=== PATIENT | female | born 1960 | race African-American/Black ===

== ENCOUNTER 2017-05-13 12:20 | Inpatient (IN) ==
[2017-05-13] MEDS ORDERED: BENTYL IM ONE (14:19)
[2017-05-13] MEDS ORDERED: NS 1,000 ML IV ONE ×2 (14:19→17:32)
[2017-05-13] MEDS ORDERED: ZOFRAN IV ONE ×2 (14:19→18:10)
[2017-05-13 15:24] LABS: BASO% 0.1 % (0.0-0.8); EOS# 0.01 X1000 (0.0-0.7); EOS% 0.1 % (0.0-10.0); HEMATOCRIT 49.1 % (37.0-47.0); HEMOGLOBIN 16.1 g/dL (12.0-16.0); IMM GRAN# 0.03 X1000 (0.0-0.04); IMM GRAN% 0.2 % (0.0-0.5); LYMPH# 1.11 X1000 (1.2-3.4); LYMPH% 7.6 % (20.5-51.1); MANUAL DIFF NEEDED? NO; MCH 29.8 PG (27-31); MCHC 32.8 g/dL (33-37); MCV 90.8 FL (81-99); MONO# 0.63 X1000 (0.11-0.59); MONO% 4.3 % (1.7-9.3); MPV 11.2 FL (7.4-10.4); NEUT% 87.7 % (42.2-75.2); PLT 223 X1000 (130-400); RBC 5.41 XMIL (4.2-5.4)
[2017-05-13 15:49] LABS: AGAP 12; ALBUMIN 4.5 g/dL (3.5-5.0); ALKALINE PHOSPHATASE 69 U/L (32-104); AMYLASE 64 U/L (20-200); BUN 14 mg/dL (8-22); CALCIUM 9.7 mg/dL (8.8-10.2); CHLORIDE 104 mmol/L (98-107); COSMO 281; GOT 12 U/L (10-30); GPT 6 U/L (10-36); LIPASE 28 U/L (13-60); POTASSIUM 3.9 mmol/L (3.5-5.1); SODIUM 139 mmol/L (136-145); TCO2 23 mmol/L (25-35); TOTAL PROTEIN 8.6 g/dL (6.3-8.3)
--- NOTE | 2017-05-13 16:37 | Diag Imaging Result Doc PS360 ---
EXAM: ABDOMEN/PELVIS W/O CONTRAST HISTORY: ABD PAIN/VOMITING TECHNIQUE: CT urogram without contrast COMMENT: There is interstitial fibrosis versus edema present in the lung bases. There is free fluid in the subphrenic spaces. There is also some free fluid in the pelvis. The urinary bladder is unremarkable. There is fluid throughout much of the small bowel. No evidence of hydronephrosis or nephrolithiasis is present. There are no definite gallstones. The distal ileum is decompressed. There is some equalization of contents in the distal jejunum or proximal ileum. Some remaining gas and stool is present in the ascending colon. There is solid stool in the transverse colon. There is also some residual fecal debris in the rectosigmoid. No free air is present. There is no evidence of appendicitis. There are no acute bony abnormalities. IMPRESSION: Partial small bowel obstruction with ascites. The possibility of an internal hernia cannot be excluded. Electronically signed by Tomás Zhao 05/13/2017 4:34 PM
[2017-05-13] MEDS ORDERED: ZOSYN 4.5 GM/NS 4.5 GM/100 ML IVPB IV ONE (17:31)
[2017-05-13] MEDS ORDERED: DILAUDID IV ONE (17:34)
[2017-05-13 17:41] LABS: URINE CULTURE NEEDED? NO; URINE MICRO REVIEW NEEDED? NO; URINE SOURCE CLEAN CATCH
--- NOTE | 2017-05-13 17:46 | PROVIDER DOCUMENTATION ---
This chart was entered by Shar Portillo Scribe, acting as scribe for Valery Uribe MD. HPI-General Adult - General Chief Complaint: Nausea/Vomiting Stated Complaint: N/V Time Seen by Provider: 05/13/17 14:13 Source: patient Allergies/Adverse Reactions: Patient Allergies Allergy/AdvReac Type Severity Reaction Status Date / Time Iodinated Contrast Media - Allergy ANAPHYLAXIS Verified 06/05/16 17:45 Oral and Home Medications: Home Medication List Medication Instructions Recorded Confirmed Last Taken Type Acetaminophen with Codeine 1 each PO Q4H PRN PRN #7 tablet 06/05/16 Unknown Rx [Tylenol with Codeine #3] Cyclobenzaprine [Flexeril] 10 mg PO TID #20 tablet 06/05/16 Unknown Rx - History of Present Illness -Gen Adult Nature of Presenting Problems: 57 yo F presents to the ER with complaint of abdominal pain, nausea, and vomiting x 1 day. PT denies diarrhea and all other symptoms. Location of Pain/Injury: reports: abdomen Pain Radiation: reports: no radiation Quality of Pain: reports: aching Severity: reports: mild Onset/Duration: reports: 24 hours ago Timing: reports: still present Associated Symptoms: reports: nausea, vomiting Review of Systems - Adult - REVIEW OF SYSTEMS - ADULT Constitutional: denies: chills, fever Cardiovascular: denies: chest pain, palpitations Respiratory: denies: cough, shortness of breath Gastrointestinal: reports: abdominal pain, nausea, vomiting. denies: diarrhea Musculoskeletal: denies: back pain, neck pain All Other Systems: Reviewed and Negative Past History - Adult - PAST MEDICAL HISTORY-ADULT Review of Records: reports: Old Records Reviewed, Nursing Assessment Review, Medications Reviewed, Social history reviewed & non-contributory. - PRIOR SURGERIES/PROCEDURES Surgical/Procedure History: reports: reviewed, not pertinent - IMMUNIZATION STATUS Childhood Immunizations: See Nurse Assessment Flu Vaccine: See Nurse Assessment Physical Exam-General - PHYSICAL EXAM-ADULT Initial Vital Signs Reviewed: Yes - CONSTITUTIONAL General Appearance: appears well, alert, no apparent distress - RESPIRATORY Respiratory: chest non-tender, lungs clear, normal breath sounds - CARDIOVASCULAR Cardiovascular: normal peripheral pulses, regular rate, rhythm - GASTROINTESTINAL (ABDOMEN) Abdominal Exam: normal bowel sounds, soft, tenderness (suprapubic and left quadrant) - MUSCULOSKELETAL Extremity: normal range of motion, non-tender, normal gait Progress - PLAN OF CARE/RESULTS Progress/Plan/Lab Results: Vital Signs - 8 hr 05/13/17 12:22 Temperature 98.3 F Pulse Rate 69 Respiratory Rate 18 Blood Pressure 159/92 O2 Sat by Pulse Oximetry 100 Orders Category Date Time Status NPO Diet 05/13/17 12:39 Active AMYLASE [CHEM] Stat Lab 05/13/17 12:39 Uncollected CBC WITH ELECTRONIC DIFF [HEME] Stat Lab 05/13/17 12:39 Uncollected COMPREHENSIVE METABOLIC PANEL [CHEM] Stat Lab 05/13/17 12:39 Uncollected LIPASE [CHEM] Stat Lab 05/13/17 12:39 Uncollected URINALYSIS W/POSS RFLX CULT-1 [URINALYSIS] Stat Lab 05/13/17 12:39 Uncollected 0.9% Sodium Chloride Inj [Ns] 1,000 ml Med 05/13/17 14:19 Active IV 999 mls/hr Dicyclomine [Bentyl] Med 05/13/17 14:19 Discontinued 20 mg IM NOW ONE Ondansetron [Zofran] Med 05/13/17 14:19 Discontinued 4 mg IV NOW ONE Result Diagrams: 05/13/17 14:55 05/13/17 14:55 - CT/MRI 1 CT Study: Abdomen Impression: See EMR Report (partial SBO with ascitis) - CONSULTS/PCP/HOSPITALIST Notification #1 *Consult/PCP/Hospitalist*: DR Moreno Time Discussed: 17:43 Consult Disposition: Admit #2 Consult: Dr Elliott(surgery) Time Discussed: 17:44 Consult Disposition: other (will see inpt) Departure - Departure Date of Disposition Decision: 05/13/17 Time of Disposition Decision: 17:44 DIAGNOSIS: SBO (small bowel obstruction) Ascites Qualifiers: Ascites type: other type Qualified Code(s): R18.8 - Other ascites Disposition: ADMITTED INPATIENT 09 Certified Medical Emergency: Emergent Condition: Fair Referrals and Follow-Ups: None,PCP [Primary Care Provider] - - Critical Care Note This patient required my direct & personal management of CC.: No Comments: pt on evalaution found to have partial SBO with ascitis no free air noted, given pain medicaitons along with IV fluids, discussed with surgery Dr Elliott and admit to hospitalist This chart was documented by the indicated scribe, (Shar Portillo Scribe) and accurately reflects the services I performed and decisions made by me, Valery Uribe MD, as attested by the provider's signature.
[2017-05-13 17:49] LABS: BILIRUBIN URINE NEGATIVE (NEGATIVE); BLOOD URINE SMALL (NEGATIVE); COLOR YELLOW; GLUCOSE URINE NEGATIVE (NEGATIVE); LEUKOCYTES URINE NEGATIVE (NEGATIVE); NITRITE URINE NEGATIVE (NEGATIVE); PH URINE 5.5; PROTEIN URINE 50 mg/dL (NEGATIVE); TURBIDITY URINE CLEAR (CLEAR); UR EPITHELIAL CELLS <10 /HPF (<10); URINE BACTERIA NEGATIVE /HPF; URINE RBC <10 /HPF (<10); URINE WBC <10 /HPF (<10); UROBILINOGEN URINE NORMAL (NORMAL)
[2017-05-13] MEDS ORDERED: SODIUM CHLORIDE 0.9% INJ PRN (19:00)
[2017-05-13] MEDS ORDERED: PHENERGAN IV PRN (19:00)
[2017-05-13] MEDS ORDERED: TYLENOL PR PRN (19:08)
[2017-05-13] MEDS ORDERED: SODIUM CHLORIDE 0.9% 10 ML ONE (20:04)
--- NOTE | 2017-05-13 20:38 | HISTORY AND PHYSICAL ---
PRIMARY CARE PHYSICIAN: The patient does not have a primary care physician. CHIEF COMPLAINT: Nausea, vomiting and abdominal pain since last night around 8:30 p.m. HISTORY OF PRESENT ILLNESS: Ms. Rees is a 57-year-old female with a history of a cerebral aneurysm status post clipping who presented to the ER today with a chief complaint of abdominal cramping as well as nausea and vomiting that started around 8:30 p.m. last night at work. The patient states that she was at work when all of a sudden after she ate her meal, she started experiencing severe lower abdominal cramping. The patient states that she continued to work. However when she got home she hurt all night and was unable to sleep. The abdominal pain was then followed by nausea with vomiting. The patient again started having the same symptoms again today and decided to come to the ER. The patient states that she has not been having any diarrhea and her last bowel movement was day before yesterday. The patient states that this has never happened to her before. She denies having any fever, chills or recent sick contacts. The patient states that she did not eat anything usual over the last several days. In the ER, a CT of the abdomen and pelvis was done that revealed a partial small bowel obstruction. PAST MEDICAL HISTORY: Cerebral aneurysm. PAST SURGICAL HISTORY: 1. Hysterectomy. 2. Clipping of a cerebral aneurysm. FAMILY HISTORY: Noncontributory due to age. SOCIAL HISTORY: The patient denies any tobacco, alcohol or illicit drug use. The patient states that she lives at home with family. ALLERGIES: Iodinated contrast media. Oral and IV. HOME MEDICATIONS: None. REVIEW OF SYSTEMS: All other review of systems are negative. Please refer to the history of present illness for pertinent positives and negatives. PHYSICAL EXAMINATION: VITAL SIGNS: Temperature 98.3 degrees, blood pressure 159/92, heart rate 69, respirations 18, O2 saturations 100% on room air. GENERAL: This is an elderly female, lying in bed, in no acute distress. HEAD: Normocephalic, atraumatic. SKIN: No rashes. No lesions. Normal capillary refill. EYES: Conjunctivae clear, EOMI, PERRLA. NECK: Supple no JVD. No lymphadenopathy. No carotid bruits. LUNGS: Clear to auscultation bilaterally. No wheezes, no rales. No rhonchi. ABDOMEN: Hypoactive bowel sounds. Soft. Diffuse tenderness. No rebound. EXTREMITIES: No edema. No cyanosis. No calf tenderness. NEUROLOGIC: The patient is alert and oriented x3. No focal neurologic deficits noted. LABORATORY: White blood cell count 14, hemoglobin 16, hematocrit 49, platelets 223,000. Sodium 139, potassium 3.9, chloride 104. CO2 23, BUN 14, creatinine 0.6, glucose 144, calcium 9.7, AST 12, ALT 6, alkaline phosphatase 69, albumin 4.5. UA: Small blood and trace protein. IMAGING: CT of the abdomen and pelvis reveals a partial small bowel obstruction with ascites. Possible internal hernia. ASSESSMENT AND PLAN: 1. Partial small bowel obstruction. The patient will be made nothing per oral. We will place an nasogastric tube to low intermittent suction and repeat abdominal x-ray tomorrow. We will also consult General Surgery for further recommendations. The patient will be started on IV fluids, p.r.n. antiemetics and IV pain medication. 2. Leukocytosis. The patient's urinalysis is unremarkable. We will check a chest x-ray to rule out the possibility of pneumonia. For now we will hold off on antibiotic therapy. The patient is afebrile. 3. Gastrointestinal prophylaxis. We will start the patient on IV Protonix. 4. Deep vein thrombosis prophylaxis. We will start the patient on Lovenox. The plan of care was discussed with the patient and her family members at the bedside. cc: Henny Moreno MD
--- NOTE | 2017-05-13 20:47 | Diag Imaging Result Doc PS360 ---
EXAM: CHEST/ABD TUBE PLACEMENT HISTORY: REPOSITION NG TUBE TECHNIQUE: AP upright portable chest at 2034 COMMENT: There is an NG tube with its tip in the fundus of the stomach. There is minimal basilar atelectasis bilaterally. There are no previous studies. IMPRESSION: NG tube in the stomach. Electronically signed by Tomás Zhao 05/13/2017 8:44 PM
[2017-05-13] MEDS: PROTONIX IV SCH (21:30)
[2017-05-13] MEDS ORDERED: NS 1,000 ML ONE (22:42)
[2017-05-13] MEDS: NS 1,000 ML IV SCH (22:49)
[2017-05-14 06:01] LABS: HEMATOCRIT 50.3 % (37.0-47.0); HEMOGLOBIN 16.4 g/dL (12.0-16.0); MCHC 32.6 g/dL (33-37); MCV 92.1 FL (81-99); MPV 10.8 FL (7.4-10.4); RBC 5.46 XMIL (4.2-5.4)
[2017-05-14 06:20] LABS: HEMOGLOBIN A1C 5.5 % (4.8-6.0)
[2017-05-14 06:59] LABS: AGAP 15; ALBUMIN 3.8 g/dL (3.5-5.0); BUN 15 mg/dL (8-22); CALCIUM 8.9 mg/dL (8.8-10.2); CHLORIDE 106 mmol/L (98-107); COSMO 287; POTASSIUM 4.3 mmol/L (3.5-5.1); SODIUM 143 mmol/L (136-145); TCO2 22 mmol/L (25-35)
[2017-05-14 07:13] LABS: VITAMIN D 25 HYDROXY 6.1 NG/DL
[2017-05-14] MEDS: PROTONIX IV SCH ×2 (07:40→18:40)
--- NOTE | 2017-05-14 08:17 | CONSULTATION ---
DATE OF CONSULTATION: 05/14/2017 Ms. Zoila Rees is a 57-year-old black female, who presented to our emergency department with a 12-24 hour history of crampy abdominal pain, which was intermittent but severe involving mostly her lower abdomen. As part of her evaluation, she underwent a CT scan of her abdomen and pelvis which suggested a partial small-bowel obstruction. She has had previous abdominal surgery through a lower transverse incision and it was a hysterectomy; otherwise, she has had no abdominal surgery. She has not had symptoms like this before. Her last bowel movement was approximately 2 days ago. PAST MEDICAL HISTORY: Hysterectomy. MEDICATIONS: None. ALLERGIES: Iodine dye. SOCIAL HISTORY: She works in [employer]. REVIEW OF SYSTEMS: A 14-point review of systems was performed and was essentially negative, except for the history of present illness. FAMILY HISTORY: Noncontributory. PHYSICAL EXAMINATION: General: Ms. Rees remains in our emergency department. She has an NG tube in place. The output of this NG tube has been minimal. She states that she feels better than her presentation last night in her abdomen. She is only slightly tender. She is awake, cooperative. She has no jaundice. No oral lesions. No cervical or supraclavicular lymphadenopathy. Heart: Regular rate. Lungs: Clear to auscultation and percussion bilaterally. Abdomen: Mostly soft. It is mildly tender in the lower abdomen. There is no palpable mass. She has a well-healed transverse scar in the lower abdomen without evidence of hernia. She had no costovertebral tenderness. Rectal/Vaginal Examinations: Not performed. She does have palpable peripheral pulses. No peripheral edema. Neurological: She is alert and oriented x3 and appropriate. She has had a CT scan of her abdomen and pelvis which suggested a possible partial small bowel obstruction. Could not rule out internal hernia, but she did have some stool in her colon with some gas in the ascending colon. She has had a flat plate of her abdomen after placement of an NG tube. She has also had a chest x-ray. There was no evidence of free air. Her lungs were mostly clear. Her white blood cell count was 14. It has increased to 17 this morning. Her electrolytes are all within normal limits, as is her liver function tests. PLAN: She needs repeat flat and upright abdominal films this morning. I feel we need to continue NG tube suction for now and IV fluids. She does not feel that she has had any flatus and not had a bowel movement since her admission. We need to keep her active. cc: Gayla Elliott MD
--- NOTE | 2017-05-14 08:27 | Diag Imaging Result Doc PS360 ---
EXAM: FLAT/UPRIGHT ABD/1 VIEW CHEST HISTORY: obstruction TECHNIQUE: Portable upright COMPARISON: 05/13/2017 FINDINGS: A nasogastric tube overlies the esophagus and stomach. Heart is not enlarged. The vessels are not distended. Mild increased interstitial markings in the right base may simply be atelectasis or fibrosis. No consolidation. IMPRESSION: No significant interval change. Electronically signed by Rene Masters 05/14/2017 8:25 AM
[2017-05-14] MEDS: NS 1,000 ML IV SCH ×3 (09:15→18:37)
[2017-05-14] MEDS: LOVENOX SUBQ SCH (09:15)
[2017-05-14] MEDS: ROCEPHIN 1 GM/NS 1 GM/50 ML IVPB IV SCH (09:30)
[2017-05-14] MEDS: DILAUDID IV PRN ×3 (15:27→18:49)
--- NOTE | 2017-05-14 16:20 | PROGRESS NOTE ---
DATE: 05/14/2017 SUBJECTIVE: The patient states that she is not nauseous and not having abdominal pain at this time. She currently has NG tube in place to low intermittent suction. OBJECTIVE: Vital Signs: Temperature 98 degrees, blood pressure 138/75, heart rate 73, respirations 16, O2 saturations 99% on room air. General: This is an elderly female, lying in bed, in no acute distress. Head: Normocephalic, atraumatic. Heart: S1, S2. Normal. Regular rate and rhythm. Lungs: Clear to auscultation bilaterally. Abdomen: Positive bowel sounds. Soft, nontender, nondistended. Extremities: No edema. No cyanosis. No calf tenderness. Neurologic: The patient is alert and oriented x3. LABS: White blood cell count 17, hemoglobin 16, hematocrit 50, platelets 203,000. Sodium 143, potassium 4.3, chloride 106, CO2 22, BUN 15, creatinine 0.8, glucose 120. Vitamin D 6.1. ASSESSMENT AND PLAN: 1. Partial small bowel obstruction. Continue with NG tube decompression. The patient will remain NPO. Continue IV fluid hydration. 2. Leukocytosis. The patient does not have any obvious source of infection. We will continue to monitor this closely. The patient is currently on Rocephin. 3. Deep vein thrombosis prophylaxis. Continue on Lovenox. 4. Gastrointestinal prophylaxis. Continue on IV Protonix. cc: Henny Moreno MD
[2017-05-14] MEDS: SODIUM CHLORIDE 0.9% INJ SCH (18:40)
[2017-05-15] MEDS: NS 1,000 ML IV SCH ×2 (05:14)
[2017-05-15] MEDS: PROTONIX IV SCH ×3 (05:14→20:42)
[2017-05-15] MEDS: SODIUM CHLORIDE 0.9% INJ SCH ×2 (05:14→20:42)
[2017-05-15 06:20] LABS: HEMATOCRIT 42.4 % (37.0-47.0); HEMOGLOBIN 13.5 g/dL (12.0-16.0); MCH 30.8 PG (27-31); MCHC 31.8 g/dL (33-37); MCV 96.8 FL (81-99); MPV 11.3 FL (7.4-10.4); RBC 4.38 XMIL (4.2-5.4)
[2017-05-15 06:32] LABS: AGAP 13; ALBUMIN 3.2 g/dL (3.5-5.0); BUN 20 mg/dL (8-22); CALCIUM 8.5 mg/dL (8.8-10.2); CHLORIDE 110 mmol/L (98-107); COSMO 294; MAGNESIUM 2.1 mg/dL (1.5-2.7); POTASSIUM 3.7 mmol/L (3.5-5.1); SODIUM 147 mmol/L (136-145); TCO2 24 mmol/L (25-35)
--- NOTE | 2017-05-15 07:53 | Diag Imaging Result Doc PS360 ---
EXAM: ABDOMEN FLAT/UPRIGHT HISTORY: obstruction TECHNIQUE: AP upright chest and abdomen at 0550 portable COMMENT: There is an NG tube coiled in the fundus of the stomach. There is some small bowel and colonic gas with stool throughout the left colon. There is apparent atelectasis in the basilar portion of the left lower lobe. This is worse than on 05/14/2017. IMPRESSION: Constipation. Left lower lobe atelectasis. Otherwise nonspecific abdomen. Electronically signed by Tomás Zhao 05/15/2017 7:51 AM
[2017-05-15] MEDS: LOVENOX SUBQ SCH (08:16)
[2017-05-15] MEDS: ROCEPHIN 1 GM/NS 1 GM/50 ML IVPB IV SCH (08:16)
[2017-05-15] MEDS ORDERED: D5 1/2 NS + KCL 20 MEQ 1,000 ML IV SCH (08:40)
--- NOTE | 2017-05-15 09:34 | PROGRESS NOTE ---
DATE: 05/15/2017 SUBJECTIVE: This is hospital day 3 for Ms. Rees, who is a 57-year-old black female who was admitted through our emergency department with a diagnosis of partial small bowel obstruction. An NG tube was placed in the emergency department and she has not had much volume out of the NG tube. Today she is on the floor and her abdomen is mostly soft. Mildly tender to palpation diffusely. She is she has an NG tube in place. She states that she has had flatus. Her heart rate is 74, blood pressure 139/79. Her hematocrit is 42%. She does not have a Cornejo catheter tube in place. Her urine output is adequate. Her BUN and creatinine are 20 and 0.8. She has telemetry in place. She is independent and is able to move around her room. She is on IV antibiotics because of an elevated white blood cell count and abdominal pain, but I am unsure of where her infection is. Her white blood cell count is now normal and she is afebrile. She is on IV Rocephin and Zosyn. PLAN: We will remove her NG tube. We will keep her NPO except for ice chips now to make sure she tolerates her NG tube being out. We then will advance her diet. IV antibiotics continue. We will try to limit her pain medicine and increase her activity. cc: Gayla Elliott MD
[2017-05-15] MEDS ORDERED: POTASSIUM PHOSPHATE 20 MMOL in NS 250 ML IV ONE (12:30)
--- NOTE | 2017-05-15 12:31 | Diag Imaging Result Doc PS360 ---
EXAM: CT THORAX W/O CONTRAST - 05/15/2017 HISTORY: pneumonia TECHNIQUE: Without contrast per request the referring provider. Dose reduction protocol. COMPARISON: None. FINDINGS: There is some emphysematous changes and scarring which are most prominent at the anterior medial upper lobes, particularly on the left. There are infiltrates, possibly with some atelectasis, at the bilateral inferior lower lobes, is prominent on the left. These are suspicious for pneumonia. The remainder lungs appear grossly clear of acute changes. There are tiny bilateral pleural effusions. There is no pneumothorax seen. There are nonspecific small mediastinal lymph nodes. There is a small amount of perihepatic ascites noted on included sections of the upper abdomen. IMPRESSION: Emphysematous changes and scarring, most prominent at the anterior medial upper lobes, particularly on the left. Infiltrates at bilateral inferior lower lobes, is prominent on the left. These are suspicious for pneumonia. Small amount of perihepatic ascites. Electronically signed by Jesús Alvarez 05/15/2017 12:29 PM
--- NOTE | 2017-05-15 16:20 | PROGRESS NOTE ---
DATE: 05/15/2017 SUBJECTIVE: The patient had her NG tube removed today. Her x-ray is improved. OBJECTIVE: Vital Signs: Temperature 97.6, blood pressure 126/60, heart rate 65, respirations 20, O2 saturations 98% on room air. General: This is an elderly female, sitting in a chair in no acute distress. Head: Normocephalic, atraumatic. Heart: S1, S2. Normal. Regular rate and rhythm. Lungs: Equal air entry bilaterally. Crackles at the bases. Abdomen: Positive bowel sounds. Soft, nontender, nondistended. Extremities: No edema. No cyanosis. No calf tenderness. Neurologic: The patient is alert and oriented x3. LABS: White blood cell count is 6.5, hemoglobin 13, hematocrit 42, platelets 164. Sodium 147, potassium 3.7, chloride 110, CO2 of 24, BUN 20, creatinine 0.8, glucose 80, phosphorus 2.5, albumin 3.2. CT of the chest reveals bilateral basilar infiltrates consistent with pneumonia. ASSESSMENT AND PLAN: 1. Bilateral lobe pneumonia. The patient is currently on Rocephin. Will continue this. Will also check a sputum, Gram stain and culture. Will order incentive spirometry. Will also order bronchodilator therapy. 2. Partial small bowel obstruction. Improved. General surgery is following. 3. Hypernatremia. The patient's IV fluid has been changed to D5 half-normal saline. Will monitor this closely. 4. Deep vein thrombosis prophylaxis. Continue on Lovenox. 5. Consult physical therapy. cc: Henny Moreno MD
[2017-05-15] MEDS: DUONEB (A & A) INH SCH ×2 (16:40→22:23)
[2017-05-15] MEDS: D5 1/2 NS 1,000 ML IV SCH ×2 (17:14→18:29)
[2017-05-15] MEDS: MERREM 500 MG in NS 50 ML IV SCH (18:14)
[2017-05-16] MEDS: MERREM 500 MG in NS 50 ML IV SCH ×3 (01:41→18:03)
[2017-05-16] MEDS: DUONEB (A & A) INH SCH ×2 (03:30→11:21)
[2017-05-16] MEDS: D5 1/2 NS 1,000 ML IV SCH ×2 (05:03→18:03)
[2017-05-16 06:00] LABS: MANUAL DIFF NEEDED? NO
[2017-05-16] MEDS: SODIUM CHLORIDE 0.9% INJ SCH ×2 (06:05→18:03)
[2017-05-16] MEDS: PROTONIX IV SCH ×2 (06:05→18:03)
[2017-05-16 06:26] LABS: AGAP 12; ALBUMIN 3.1 g/dL (3.5-5.0); BUN 15 mg/dL (8-22); CALCIUM 8.3 mg/dL (8.8-10.2); CHLORIDE 108 mmol/L (98-107); COSMO 286; POTASSIUM 3.3 mmol/L (3.5-5.1); SODIUM 143 mmol/L (136-145); TCO2 23 mmol/L (25-35)
[2017-05-16 06:36] LABS: BASO% 0.2 % (0.0-0.8); EOS# 0.12 X1000 (0.0-0.7); EOS% 1.8 % (0.0-10.0); HEMATOCRIT 40.6 % (37.0-47.0); HEMOGLOBIN 12.9 g/dL (12.0-16.0); LYMPH# 2.13 X1000 (1.2-3.4); LYMPH% 32.4 % (20.5-51.1); MCH 29.7 PG (27-31); MCHC 31.8 g/dL (33-37); MCV 93.3 FL (81-99); MONO% 12.2 % (1.7-9.3); MPV 11.6 FL (7.4-10.4); NEUT% 53.4 % (42.2-75.2); PLT 159 X1000 (130-400); RBC 4.35 XMIL (4.2-5.4)
--- NOTE | 2017-05-16 07:27 | Diag Imaging Result Doc PS360 ---
EXAM: ABDOMEN FLAT/UPRIGHT HISTORY: obstruction TECHNIQUE: Portable flat and upright abdomen two views COMMENT: There is atelectasis or pneumonia in the left lower lobe. There are no distended gas-filled small bowel loops in the midabdomen. Some gas is present in the colon including the rectum. Compared to 05/15/2017 there is less colonic gas and less small bowel fluid apparently. IMPRESSION: Partial small bowel obstruction. Electronically signed by Tomás Zhao 05/16/2017 7:24 AM
[2017-05-16] MEDS: LOVENOX SUBQ SCH (08:04)
[2017-05-16] MEDS: ROCEPHIN 1 GM/NS 1 GM/50 ML IVPB IV SCH (08:04)
[2017-05-16] MEDS ORDERED: POTASSIUM CHLORIDE 60 MEQ in NS 500 ML IV ONE (09:00)
[2017-05-16] MEDS ORDERED: BLISTEX MEDICATED BERRY LIP BALM TOP PRN (11:04)
--- NOTE | 2017-05-16 11:51 | Diag Imaging Result Doc PS360 ---
EXAM: ABDOMEN FLAT/UPRIGHT HISTORY: obstruction TECHNIQUE: AP portable chest and abdomen two views COMMENT: There is gas in the colon including the rectum. There is distention of the small bowel throughout the midabdomen. This was also the case on the previous study of this date at 0530. There is atelectasis versus pneumonia in the left lower lobe with some increase in the platelike atelectasis over the right base. IMPRESSION: Partial small bowel obstruction. Bibasilar atelectasis with possible pneumonia on the left. Electronically signed by Tomás Zhao 05/16/2017 11:49 AM
--- NOTE | 2017-05-16 13:24 | PROGRESS NOTE ---
DATE: 05/16/2017 SUBJECTIVE: Zoila Rees is a 57-year-old black female who has presented with abdominal pain. We have removed her NG tube and she has had no nausea or vomiting. She is tolerating liquids. She has had flatus, but no bowel movement. Her only previous abdominal surgery has been sections. OBJECTIVE: Vital Signs: She is afebrile. Lungs: She has no work of breathing. Abdomen: Her abdomen is slightly distended, but not tightly. There does not appear to be significant tenderness on palpation. ASSESSMENT: She is on IV antibiotics. We are not sure what infection we are treating. LABORATORY AND IMAGING: Her white blood cell count has remained normal at 6.57. Her hematocrit is 40%. Her BUN and creatinine are 15 and 0.7. By chest x-ray, there is some atelectasis versus pneumonia, left lower lobe. She still has some dilated loops of small bowel. PLAN: Will advance her diet as tolerated. She is walking the halls. cc: Gayla Elliott MD
--- NOTE | 2017-05-16 15:36 | PROGRESS NOTE ---
DATE: 05/16/2017 SUBJECTIVE: The patient is up walking in the hallway. She states that she feels a lot better. She is not coughing up greenish colored sputum anymore. She did tolerate a clear liquid breakfast. OBJECTIVE: Vital Signs: Temp 98.6 degrees, blood pressure 154/83, heart rate 72, respirations 18, O2 saturations 98% on room air. General: This is an elderly female, lying in bed, in no acute distress. Head: Normocephalic atraumatic. Heart: S1, S2. Normal. Regular rate and rhythm. Lungs: Clear to auscultation bilaterally. No crackles. No rales. Abdomen: Positive bowel sounds. Soft, nontender, nondistended. Extremities: No edema. No cyanosis. No calf tenderness. Neurological: Patient is alert and oriented x3. LABS: White blood cell count 6.5, hemoglobin 12, hematocrit 40, platelets 159, 000. Sodium 143, potassium 3.3, chloride 108, CO2 23, BUN 15, creatinine 0.7, glucose 96. Albumin 3.1. ASSESSMENT AND PLAN: 1. Partial small bowel obstruction. Improved. The patient appears to be tolerating a clear liquid diet at this time. Further management as per the general surgeon. 2. Pneumonia. The patient's white count has normalized. Will continue on the current antibiotic therapy plus bronchodilator therapy. Once the patient is ready for discharge we will transition to oral antibiotic therapy. 3. Hypertension. Will start the patient on Norvasc. We will also monitor the patient closely for peripheral edema. 4. Hypokalemia. Will replace the patient's potassium. 5. Gastrointestinal prophylaxis. Continue on IV Protonix. 6. Deep vein thrombosis prophylaxis. Continue on Lovenox. The patient is also ambulatory. cc: Henny Moreno MD MTDD
[2017-05-16] MEDS: DUONEB (A & A) INH PRN ×2 (15:58→21:00)
[2017-05-16] MEDS: NORVASC PO SCH (20:24)
[2017-05-17] MEDS: MERREM 500 MG in NS 50 ML IV SCH ×3 (01:22→18:13)
[2017-05-17] MEDS: NORCO-7.5 PO PRN ×2 (01:26→19:41)
[2017-05-17] MEDS: DUONEB (A & A) INH PRN ×4 (03:05→19:10)
[2017-05-17] MEDS: SODIUM CHLORIDE 0.9% INJ SCH (06:08)
[2017-05-17] MEDS: PROTONIX IV SCH (06:08)
[2017-05-17] MEDS: D5 1/2 NS 1,000 ML IV SCH ×2 (06:09→09:55)
[2017-05-17 06:33] LABS: MANUAL DIFF NEEDED? NO
[2017-05-17 06:37] LABS: BASO% 0.1 % (0.0-0.8); EOS% 1.3 % (0.0-10.0); HEMATOCRIT 37.4 % (37.0-47.0); HEMOGLOBIN 12.3 g/dL (12.0-16.0); LYMPH# 2.11 X1000 (1.2-3.4); LYMPH% 28.4 % (20.5-51.1); MCHC 32.9 g/dL (33-37); MCV 91.2 FL (81-99); MONO# 0.64 X1000 (0.11-0.59); MONO% 8.6 % (1.7-9.3); MPV 11.5 FL (7.4-10.4); NEUT% 61.6 % (42.2-75.2); PLT 147 X1000 (130-400)
[2017-05-17 07:12] LABS: AGAP 9; ALBUMIN 3.2 g/dL (3.5-5.0); ALKALINE PHOSPHATASE 44 U/L (32-104); BUN 5 mg/dL (8-22); CALCIUM 8.7 mg/dL (8.8-10.2); CHLORIDE 104 mmol/L (98-107); COSMO 275; GOT 11 U/L (10-30); GPT 5 U/L (10-36); MAGNESIUM 1.8 mg/dL (1.5-2.7); POTASSIUM 3.8 mmol/L (3.5-5.1); SODIUM 139 mmol/L (136-145); TCO2 26 mmol/L (25-35); TOTAL BILIRUBIN 0.33 mg/dL (0.20-1.00); TOTAL PROTEIN 6.1 g/dL (6.3-8.3)
--- NOTE | 2017-05-17 08:28 | PROGRESS NOTE ---
DATE: 05/17/2017 SUBJECTIVE: Ms. Zoila Rees is a 57-year-old black female who has been hospitalized with a partial small-bowel obstruction. This seems to be resolving with conservative treatment. Her white blood cell count was elevated on admission, but now it is normal with IV antibiotics. OBJECTIVE: Her heart rate is 66, blood pressure 150/76, O2 saturation 100%. She has no work of breathing. She is voiding without difficulty. She is passing flatus, but has had no bowel movement. Her white blood cell count is 7.44. She is on IV Rocephin and Merrem for possible pneumonia. Her electrolytes are within the normal limits. Her BUN and creatinine are 5 and 0.5. Liver function tests are within normal limits. A flat and upright abdominal film yesterday still showed some abnormal small bowel gas, but there was also gas in the colon. Clinically, she has states that she feels better and she would like your diet advanced. Her abdomen remains slightly distended, but is softer than yesterday. It does not seem to be tender. She is afebrile. PLAN: We will continue to try to increase her activity and advance her diet. cc: Gayla Elliott MD
[2017-05-17] MEDS: NORVASC PO SCH ×3 (09:52→22:40)
[2017-05-17] MEDS: LOVENOX SUBQ SCH (09:52)
--- NOTE | 2017-05-17 15:52 | PROGRESS NOTE ---
DATE: 05/17/2017 SUBJECTIVE: The patient is resting comfortably in bed. She has no complaints at this time. She says she feels a lot better. She had a solid meal for breakfast. OBJECTIVE: Vital Signs: Temperature 98 degrees, blood pressure 130/56, heart rate 83, respirations 26, O2 saturation 96% on room air. General: This is an elderly female, lying in bed, in no acute distress. Head: Normocephalic, atraumatic. Heart: S1, S2. Normal. Regular rate and rhythm. Lungs: Clear to auscultation bilaterally. No wheezes, no rales. No rhonchi. Abdomen: Positive bowel sounds. Soft, nontender, nondistended. Extremities: No edema. No cyanosis. No calf tenderness. Neurologic: The patient is alert and oriented x3. LABS: Reviewed. ASSESSMENT AND PLAN: 1. Partial small bowel obstruction. Improved. The patient is now on solid diet. We will now monitor the patient closely for bowel movements. General Surgery is following. 2. Pneumonia. Improved. Continue on the current antibiotic regimen. 3. Hypertension. Continue on Norvasc. 4. Deep vein thrombosis prophylaxis. Continue on Lovenox. cc: Henny Moreno MD
[2017-05-17] MEDS: COLACE PO SCH ×2 (19:39→22:40)
[2017-05-17] MEDS: MIRALAX PO SCH ×2 (19:39→22:41)
[2017-05-18] MEDS: MERREM 500 MG in NS 50 ML IV SCH ×3 (01:24→17:27)
[2017-05-18] MEDS: D5 1/2 NS 1,000 ML IV SCH ×2 (01:25→22:13)
[2017-05-18] MEDS: PROTONIX PO SCH (06:02)
[2017-05-18] MEDS: NORCO-7.5 PO PRN (06:02)
[2017-05-18 06:10] LABS: MANUAL DIFF NEEDED? NO
[2017-05-18 06:27] LABS: BASO% 0.2 % (0.0-0.8); EOS# 0.12 X1000 (0.0-0.7); EOS% 2.2 % (0.0-10.0); HEMATOCRIT 38.2 % (37.0-47.0); HEMOGLOBIN 12.7 g/dL (12.0-16.0); LYMPH# 1.91 X1000 (1.2-3.4); LYMPH% 34.5 % (20.5-51.1); MCH 30.2 PG (27-31); MCHC 33.2 g/dL (33-37); MCV 90.7 FL (81-99); MONO# 0.62 X1000 (0.11-0.59); MONO% 11.2 % (1.7-9.3); MPV 11.5 FL (7.4-10.4); NEUT% 51.9 % (42.2-75.2); PLT 160 X1000 (130-400); RBC 4.21 XMIL (4.2-5.4)
[2017-05-18 07:11] LABS: AGAP 10; BUN 5 mg/dL (8-22); CALCIUM 8.9 mg/dL (8.8-10.2); CHLORIDE 103 mmol/L (98-107); COSMO 276; POTASSIUM 3.7 mmol/L (3.5-5.1); SODIUM 140 mmol/L (136-145); TCO2 27 mmol/L (25-35)
[2017-05-18] MEDS: DUONEB (A & A) INH PRN (09:21)
--- NOTE | 2017-05-18 10:34 | PROGRESS NOTE ---
DATE: 05/18/2017 DATE: 05/18/2017. SUBJECTIVE: Ms. Estrada is now hospital day 6, admitted with the diagnosis of a partial small bowel obstruction. She was initially treated with an NG tube and n.p.o. Her NG tube has been removed several days. She has not had any vomiting, but her flat and upright abdominal film continued to show an abnormal amount of gas. She does have gas in her colon. She is eating. Her abdomen remains slightly distended. It is not tightly distended. Her heart rate is 57 blood pressure 141/76 O2 saturation 99%. She is on antibiotics. Her white blood cell count is normal. She is afebrile. She is voiding without a [place]. She is eating about 50% of her meals. Her BUN and creatinine are 5 and 0.6. Hematocrit is 38%. PLAN: She is being pretty active in the room. We are feeding Her. Clinically, she seems to be improving. cc: Gayla Elliott MD
[2017-05-18] MEDS: LOVENOX SUBQ SCH (10:54)
[2017-05-18] MEDS: COLACE PO SCH ×2 (10:54→21:37)
[2017-05-18] MEDS: MIRALAX PO SCH ×2 (10:54→21:37)
[2017-05-18] MEDS: NORVASC PO SCH ×2 (10:54→21:37)
[2017-05-18] MEDS ORDERED: DULCOLAX PR ONE (11:33)
--- NOTE | 2017-05-18 12:41 | Diag Imaging Result Doc PS360 ---
EXAM: FLAT/UPRIGHT ABD/1 VIEW CHEST INDICATION: obstruction TECHNIQUE: 3 views COMPARISON: 05/16/2017 FINDINGS: There is persistent gaseous distention of small bowel that is essentially stable as compared to the previous study. There is no evidence of large volume free abdominal gas. Patchy colonic gas is also stable. There is suggestion of bibasilar atelectasis and/or infiltrate. This is similar to the previous study. No new consolidations are appreciated. Cardiac silhouette is stable. IMPRESSION: Essentially stable chest and abdominal radiograph. Electronically signed by Ar Estevez 05/18/2017 12:39 PM
--- NOTE | 2017-05-18 17:02 | PROGRESS NOTE ---
DATE: 05/18/2017 SUBJECTIVE: The patient is resting comfortably in bed. She states that she has not had a bowel movement yet but she is eating. She had some mild nausea this morning after eating but it subsided. OBJECTIVE: Vital Signs: Temperature 97 degrees, blood pressure 118/58, heart rate 61, respirations 16, O2 saturation is 98% on room air. General: This is an elderly female, lying in bed, in no acute distress. Head: Normocephalic, atraumatic. Heart: S1, S2. Normal. Regular rate and rhythm. Lungs: Clear to auscultation bilaterally. No wheezes. No rales. No rhonchi. Abdomen: Positive bowel sounds. Soft, nontender, nondistended. Extremities: No edema. No cyanosis. Neurologic: The patient is alert and oriented x3. LABS: Sodium 140, potassium 3.7, chloride 103, BUN 5, creatinine 0.6. White blood cell count 5.5, hemoglobin 12, hematocrit 38, platelets 160,000. ASSESSMENT AND PLAN: 1. Partial small bowel obstruction. Improved. The patient appears to be tolerating her diet. Continue with laxatives therapy to aid with bowel movements. 2. Pneumonia. Improved. Continue on the current antibiotic regimen. This is day 5 of 7 days of therapy. 3. Deep vein thrombosis prophylaxis. Continue on Lovenox. 4. Continue with physical therapy. cc: Henny Moreno MD
[2017-05-19] MEDS: MERREM 500 MG in NS 50 ML IV SCH ×3 (01:31→18:06)
[2017-05-19] MEDS: D5 1/2 NS 1,000 ML IV SCH ×3 (01:32→21:24)
[2017-05-19] MEDS: PROTONIX PO SCH (06:12)
[2017-05-19 08:45] LABS: HEMATOCRIT 38.8 % (37.0-47.0); HEMOGLOBIN 12.9 g/dL (12.0-16.0); MCH 30.1 PG (27-31); MCHC 33.2 g/dL (33-37); MCV 90.7 FL (81-99); MPV 12.2 FL (7.4-10.4); RBC 4.28 XMIL (4.2-5.4)
[2017-05-19 08:54] LABS: AGAP 12; BUN 6 mg/dL (8-22); CALCIUM 9.1 mg/dL (8.8-10.2); CHLORIDE 102 mmol/L (98-107); COSMO 272; POTASSIUM 3.9 mmol/L (3.5-5.1); SODIUM 138 mmol/L (136-145); TCO2 24 mmol/L (25-35)
--- NOTE | 2017-05-19 10:27 | PROGRESS NOTE ---
DATE: 05/19/2017 Ms. Rees has had a bowel movement in the last 24 hours. She states that she is passing flatus. She is eating a regular diet. She is walking the halls. Her abdomen is softer, it is nontender to palpation this morning. Her heart rate is 65, blood pressure 135/68, O2 saturation 98%. She has no work of breathing. She is voiding without difficulty. Her white blood cell counts normal. Hematocrit is 39%. Electrolytes are within normal limits. She has had flat and upright abdominal films which showed some abnormal distention of her small bowel, but clinically, she states that she feels better daily. If she continues to improve, will work to get her home this week. cc: Gayla Elliott MD
[2017-05-19] MEDS: NORVASC PO SCH ×2 (10:29→21:25)
[2017-05-19] MEDS: DULCOLAX PO SCH (10:29)
[2017-05-19] MEDS: MIRALAX PO SCH ×2 (10:29→21:25)
[2017-05-19] MEDS: LOVENOX SUBQ SCH (10:30)
[2017-05-19] MEDS: COLACE PO SCH ×2 (10:30→21:25)
--- NOTE | 2017-05-19 13:00 | PROGRESS NOTE ---
DATE: 05/19/2017 SUBJECTIVE: The patient states that she feels good. She did have a bowel movement yesterday. She is eating well and able to tolerate her diet. She is also ambulating in the hallway. OBJECTIVE: Vital Signs: Temperature 98 degrees, blood pressure 135/68, heart rate 65, respirations 16, O2 saturations 98% on room air. General: This is a elderly female, lying in bed in no acute distress. HEENT: Head normocephalic, atraumatic. Heart: S1, S2. Normal. Regular rate and rhythm. Lungs: Clear to auscultation bilaterally. Abdomen: Positive bowel sounds. Soft, nontender, nondistended. Extremities: No edema. No cyanosis. No calf tenderness. Neurologic: The patient is alert and oriented x3. LABS: Reviewed. ASSESSMENT AND PLAN: 1. Partial small bowel obstruction. Improved. General surgery is following. The patient is tolerating a regular diet and she had a bowel movement yesterday. 2. Pneumonia. Improved. Continue on antibiotic therapy. This is day 6 of 7 days of therapy. 3. Hypertension. Controlled. 4. Deep vein thrombosis prophylaxis. Continue on Lovenox. 5. Disposition. The patient will be discharged home once cleared by the general surgeon. cc: Henny Moreno MD
[2017-05-19] MEDS: DUONEB (A & A) INH PRN (20:15)
[2017-05-20] MEDS: MERREM 500 MG in NS 50 ML IV SCH ×3 (02:00→17:30)
[2017-05-20] MEDS: PROTONIX PO SCH ×2 (05:38→06:06)
[2017-05-20 07:06] LABS: HEMATOCRIT 40.4 % (37.0-47.0); HEMOGLOBIN 13.5 g/dL (12.0-16.0); MCHC 33.4 g/dL (33-37); MCV 92.7 FL (81-99); MPV 12.5 FL (7.4-10.4); RBC 4.36 XMIL (4.2-5.4)
[2017-05-20 07:23] LABS: AGAP 10; BUN 8 mg/dL (8-22); CALCIUM 8.8 mg/dL (8.8-10.2); CHLORIDE 102 mmol/L (98-107); COSMO 273; SODIUM 138 mmol/L (136-145); TCO2 26 mmol/L (25-35)
--- NOTE | 2017-05-20 09:06 | PROGRESS NOTE ---
DATE: 05/20/2017 Ms. Rees is sleeping comfortably this morning and I did not wake her. Her heart rate is 56, blood pressure 127/61, O2 saturation 98%. She is consuming about 50-75% of her meals. Her abdomen seems to be soft. Her white blood cell count is normal. Hematocrit is 40%. She has not had a bowel movement marked over the last 24 hours. She continues to be on IV antibiotics, Merrem, and IV fluids at 50 mL an hour. We have placed her on a regular diet. cc: Gayla Elliott MD
--- NOTE | 2017-05-20 09:43 | Diag Imaging Result Doc PS360 ---
EXAM: FLAT/UPRIGHT ABD/1 VIEW CHEST INDICATION: obstruction TECHNIQUE: 3 views COMPARISON: 05/18/2017 FINDINGS: There are several gas-distended loops of small bowel that persist. However, the distention appears to have improved. There is no evidence of large volume free abdominal gas. The abdomen is essentially stable, otherwise. Bibasilar atelectasis and/or infiltrate is stable. There are probably bilateral small effusions, stable. There is no new consolidation identified. Cardiac silhouette is stable. IMPRESSION: Modest improvement of gaseous distention of small bowel. Electronically signed by Ar Estevez 05/20/2017 9:40 AM
[2017-05-20] MEDS: NORVASC PO SCH ×2 (09:45→21:56)
[2017-05-20] MEDS: LOVENOX SUBQ SCH (09:45)
[2017-05-20] MEDS: MIRALAX PO SCH ×2 (09:45→21:56)
[2017-05-20] MEDS: DULCOLAX PO SCH (09:45)
[2017-05-20] MEDS: COLACE PO SCH ×2 (09:45→21:56)
[2017-05-20] MEDS: D5 1/2 NS 1,000 ML IV SCH (17:29)
--- NOTE | 2017-05-20 19:02 | PROGRESS NOTE ---
DATE: 05/20/2017 SUBJECTIVE: This patient states that she is feeling good. She had a bowel movement yesterday and apparently today, she had a couple bowel movements. As per the patient, she is tolerating p.o. and she has been passing gas. We had an abdominal x-ray that showed some improvement of the gaseous distention of the small bowel. Surgery department is following this patient. We will follow their recommendations. OBJECTIVE: Vital Signs: Temperature 98.4, pulse 58, respiratory rate 18, blood pressure 126/64, oxygen saturation 100% on room air. HEENT: Head normocephalic. No trauma. PERRLA. Neck: Supple. No JVD. No masses. Central trachea. Chest: Clear to auscultation. No wheezing. No rales. Abdomen: Soft, mild tenderness to palpation at the level of the periumbilical area. Nondistended. Positive bowel sounds. Extremities: No edema. No clubbing. No cyanosis. Neurological: The patient is alert and oriented x3. No focal deficits. LABORATORY: WBC 5.9, hemoglobin 13.5, hematocrit 40.4, platelets 177. Sodium 138, potassium 4, chloride 102, bicarbonate 26, BUN 8, creatinine 0.5. Glucose 83, calcium 8.8. ASSESSMENT AND PLAN: 1. Partial small bowel obstruction. This looks much better. General surgery is following. The patient is tolerating diet and also she is having bowel movements and passing gas. We will follow the recommendation of surgery department. 2. Pneumonia improved. Continue with antibiotics. 3. Hypertension controlled. 4. Deep vein thrombosis prophylaxis with Lovenox. DISPOSITION: This patient will be discharged home once cleared by General Surgery. cc: Frederick Sales MD
[2017-05-20] MEDS: DUONEB (A & A) INH PRN (21:00)
[2017-05-21] MEDS: MERREM 500 MG in NS 50 ML IV SCH ×3 (01:12→18:10)
[2017-05-21] MEDS: PROTONIX PO SCH (06:01)
[2017-05-21] MEDS: DULCOLAX PO SCH (09:30)
[2017-05-21] MEDS: LOVENOX SUBQ SCH (09:30)
[2017-05-21] MEDS: COLACE PO SCH (09:30)
[2017-05-21] MEDS: MIRALAX PO SCH (09:30)
[2017-05-21] MEDS: NORVASC PO SCH (09:30)
[2017-05-21] MEDS: D5 1/2 NS 1,000 ML IV SCH (14:30)
[2017-05-21 15:24] VITALS: BP 106/57
[2017-05-21] MEDS ORDERED: PNEUMOVAX 23 IM ONE ×2 (18:20→18:30)
--- NOTE | 2017-05-22 10:20 | DISCHARGE SUMMARY ---
ADMISSION DATE: 05/13/2017 DISCHARGE DATE: 05/21/2017 DISCHARGE DIAGNOSES: 1. Partial small bowel obstruction/resolved. 2. Pneumonia, resolved. 3. Hypertension, controlled. HOSPITAL COURSE: A 57-year-old female with a past medical history of cerebral aneurysm status post clipping who presented to the ER on 05/13/2017 with a chief complaint of abdominal cramping as well as nausea and vomiting that started around 8:30 p.m. the day before admission. Apparently, everything started suddenly after she ate her meal. She started having lower abdominal cramping. She states that she was not able to sleep during the night, and the abdominal pain was followed by nausea and vomiting. This is why she decided to go to the emergency department. On the morning of admission, she denied any fever, chills, or recent sick contacts. CT of the abdomen in the emergency department showed partial small bowel obstruction. She was admitted to the medical floor and Surgery Department was consulted. An NG tube with continuous suction was placed, and this patient also was placed on IV fluids. Then, the NG tube was removed, and we started advancing her diet. On 05/20/2017, she started having a bowel movement and also passing more gas. She was not complaining of abdominal pain, nausea, or vomiting. Today, also, she had more bowel movements, and she was tolerating completely her diet. Surgery evaluated this patient and they decided to send this patient home. I agree with this decision. At the moment of discharge, this patient was in a stable medical condition, tolerating p.o., ambulating, completely alert and oriented x3. DISCHARGE PHYSICAL EXAMINATION: Vital Signs: Temperature 97.6 degrees, pulse 61, respiratory rate 14, blood pressure 106/57, oxygen saturation 100% on room air. HEENT: Head normocephalic. No trauma. PERRLA. Neck supple. No JVD. No masses. Central trachea. Chest: Clear to auscultation. No wheezing. No rales. Abdomen is soft, nontender, nondistended. No hepatosplenomegaly. Extremities: No edema. No clubbing. No cyanosis. Neurologic: The patient was alert and oriented x3. No focal deficits. LABORATORY: WBC 5.9, hemoglobin 13.5, hematocrit 40.4, platelet 177,000. Sodium 138, potassium 4, chloride 102, bicarbonate 26. BUN 8, creatinine 0.5, glucose 83. Calcium 8.8. FOLLOWUP: Follow up with her primary care doctor in 1 week. DISCHARGE MEDICATIONS: 1. Amlodipine 5 mg p.o. b.i.d. 2. Dulcolax 10 mg p.o. daily. 3. Docusate 100 mg p.o. b.i.d. Time discharging this patient: 40 minutes. cc: Frederick Sales MD
== END 2017-05-21 18:42 | disposition home or self-care (01) ==
LOC: SUPCPDRO → ED 12:20 → SUATTDRO 20:02 → EDIPHOLD 20:02 → 4N 05-14 11:49
PROVIDERS: ATTEND Internal Medicine